=== PATIENT | female | born 1965 | race Two or more races ===

== ENCOUNTER 2023-06-27 10:08 | Outpatient (CLI) | payer MEDICARE, OTHER ==
[~2023-06-27] VITALS: Ht 165.1 cm; Wt 53.8 kg
[~2023-06-27 10:08] MED LIST: ALBUTEROL SULFATE 2.5MG/0.5ML INH NEB SOLN INH PRN; EPINEPHrine INJ 1 MG/ML 1ML AMP IM PRN; diphenhydrAMINE 50MG/ML VIAL IV PRN; methylPREDNISolone 125MG 2ML VIAL IV PRN
[2023-06-27 10:30] VITALS: BP 104/49; O2SAT 98
[2023-06-27] MEDS ORDERED: NATALIZUMAB OVER 1 HOUR IV ONE ×2 (11:10)
[2023-06-27] MEDS ORDERED: NS 1,000 ML IV SCH (11:10)
[2023-06-27] MEDS ORDERED: ESTR1CAP PO (11:49)
[2023-06-27] MEDS ORDERED: ADDE5CAP PO (11:49)
[2023-06-27] MEDS ORDERED: TIZA2CAP PO (11:49)
[2023-06-27] MEDS ORDERED: CYMB1CAP4 PO (11:49)
[2023-06-27 12:35] VITALS: BP 119/64; O2SAT 100
[2023-06-27 13:41] LABS: ALBUMIN 3.9 G/DL (3.2-5.2); BILIRUBIN,DIRECT 0.2 MG/DL (<0.4); BILIRUBIN,TOTAL 0.8 MG/DL (0.3-1.2); TOTAL PROTEIN 6.4 G/DL (5.7-8.2)
== END 2023-06-27 13:00 | disposition home or self-care (01) ==
LOC: M INFU 10:08 → EDUNIT# 07-12 09:00
PROVIDERS: ATTEND Registered Nurse
DX: G35 Multiple sclerosis (principal); Z88.8 Allergy status to other drugs, medicaments and biological substances
CPT/HCPCS: 36415; 80076; 86711; 96365; J2323

== ENCOUNTER 2023-07-25 10:50 | Outpatient (CLI) | payer MEDICARE, OTHER ==
[~2023-07-25] VITALS: Ht 162.6 cm; Wt 54.5 kg
[2023-07-25 10:49] VITALS: BP 110/56; TEMP 98.6; O2SAT 100
[~2023-07-25 10:50] MED LIST changes: +ADDE5CAP PO; +CYMB1CAP4 PO; +ESTR1CAP PO; +NATALIZUMAB OVER 1 HOUR IV ONE; +NS 1,000 ML IV SCH; +TIZA2CAP PO
[2023-07-25 12:59] VITALS: BP 97/50; TEMP 97.9; O2SAT 100
== END 2023-07-25 13:00 ==
LOC: M INFU 10:50 → EDUNIT# 08-09 09:00
PROVIDERS: ATTEND Registered Nurse
DX: G35 Multiple sclerosis (principal); Z88.8 Allergy status to other drugs, medicaments and biological substances
CPT/HCPCS: 96365; J2323

== ENCOUNTER 2023-08-22 09:55 | Outpatient (CLI) | payer MEDICARE, OTHER ==
[~2023-08-22] VITALS: Ht 165.1 cm; Wt 51.0 kg
[~2023-08-22 09:55] MED LIST changes: -NATALIZUMAB OVER 1 HOUR IV ONE
[2023-08-22] MEDS ORDERED: NATALIZUMAB OVER 1 HOUR IV ONE ×2 (10:00)
[2023-08-22 10:10] VITALS: BP 112/57; O2SAT 100
[2023-08-22 11:53] VITALS: BP 111/57; O2SAT 100
== END 2023-08-22 10:54 ==
LOC: M INFU 09:55 → EDUNIT# 09-06 09:00
PROVIDERS: ATTEND Registered Nurse
DX: G35 Multiple sclerosis (principal); Z88.8 Allergy status to other drugs, medicaments and biological substances
CPT/HCPCS: 96365; J2323

== ENCOUNTER 2023-09-19 10:05 | Outpatient (CLI) | payer MEDICARE, OTHER ==
[~2023-09-19] VITALS: Ht 165.1 cm; Wt 51.0 kg
[~2023-09-19 10:05] MED LIST changes: +ALBUTEROL SULFATE 2.5MG/0.5ML INH NEB SOLN INH PRN; +EPINEPHrine INJ 1 MG/ML 1ML AMP IM PRN; +NATALIZUMAB OVER 1 HOUR IV ONE; +NS 1,000 ML IV SCH; +diphenhydrAMINE 50MG/ML VIAL IV PRN; +methylPREDNISolone 125MG 2ML VIAL IV PRN
[2023-09-19 10:31] VITALS: BP 104/52; O2SAT 100
[2023-09-19 11:40] VITALS: BP 114/58; O2SAT 99
== END 2023-09-19 11:50 | disposition home or self-care (01) ==
LOC: M INFU 10:05 → EDUNIT# 10-04 09:00
PROVIDERS: ATTEND Registered Nurse
DX: G35 Multiple sclerosis (principal); Z88.8 Allergy status to other drugs, medicaments and biological substances
CPT/HCPCS: 96365; J2323

== ENCOUNTER → 2023-09-19 | Outpatient (CLI) | payer MEDICARE, OTHER ==
[~2023-09-19] MED LIST changes: -ALBUTEROL SULFATE 2.5MG/0.5ML INH NEB SOLN INH PRN; -EPINEPHrine INJ 1 MG/ML 1ML AMP IM PRN; -NS 1,000 ML IV SCH; -diphenhydrAMINE 50MG/ML VIAL IV PRN; -methylPREDNISolone 125MG 2ML VIAL IV PRN
[2023-09-19 13:52] LABS: ALBUMIN 4.2 G/DL (3.2-5.2); BILIRUBIN,DIRECT 0.2 MG/DL (<0.4); BILIRUBIN,TOTAL 0.7 MG/DL (0.3-1.2); TOTAL PROTEIN 6.8 G/DL (5.7-8.2)
== END ==
LOC: M LAB 12:10
PROVIDERS: ATTEND Psychiatry & Neurology Neurology
DX: G35 Multiple sclerosis (principal)

== ENCOUNTER 2023-10-23 14:10 | Outpatient (CLI) | payer MEDICARE, OTHER ==
[~2023-10-23] VITALS: Ht 165.1 cm; Wt 54.6 kg
[2023-10-23 14:10] VITALS: BP 129/59; O2SAT 98
[2023-10-23 15:58] VITALS: BP 113/71; O2SAT 100
== END 2023-10-23 16:00 | disposition home or self-care (01) ==
LOC: M INFU 14:10 → EDUNIT# 11-01 09:00
PROVIDERS: ATTEND Registered Nurse
DX: G35 Multiple sclerosis (principal); Z88.8 Allergy status to other drugs, medicaments and biological substances
CPT/HCPCS: 96365; J2323

== ENCOUNTER 2023-11-20 14:10 | Outpatient (CLI) | payer MEDICARE, OTHER ==
[~2023-11-20] VITALS: Ht 165.1 cm; Wt 54.5 kg
[2023-11-20 14:05] VITALS: BP 144/75; O2SAT 98
[2023-11-20 16:10] VITALS: BP 149/68; O2SAT 98
== END 2023-11-20 16:10 ==
LOC: M INFU 14:10
PROVIDERS: ATTEND Registered Nurse
DX: G35 Multiple sclerosis (principal); Z88.8 Allergy status to other drugs, medicaments and biological substances
CPT/HCPCS: 96365; J2323

== ENCOUNTER 2023-12-20 13:45 | Outpatient (CLI) | payer MEDICARE, OTHER ==
[~2023-12-20] VITALS: Ht 165.1 cm; Wt 55.0 kg
[~2023-12-20 13:45] MED LIST changes: -NATALIZUMAB OVER 1 HOUR IV ONE; -NS 1,000 ML IV SCH
[2023-12-20 13:57] VITALS: BP 124/59; O2SAT 100
[2023-12-20] MEDS ORDERED: NS 1,000 ML IV SCH (14:00)
[2023-12-20] MEDS: NATALIZUMAB OVER 1 HOUR IV ONE (14:09)
[2023-12-20 15:25] VITALS: BP 92/42; O2SAT 98
== END 2023-12-20 15:25 | disposition home or self-care (01) ==
LOC: M INFU 13:45
PROVIDERS: ATTEND Registered Nurse
DX: G35 Multiple sclerosis (principal); Z88.8 Allergy status to other drugs, medicaments and biological substances
CPT/HCPCS: 96365; J2323

== ENCOUNTER 2024-01-17 14:00 | Outpatient (CLI) | payer MEDICARE, OTHER ==
[~2024-01-17] VITALS: Ht 165.1 cm; Wt 53.6 kg
[~2024-01-17 14:00] MED LIST changes: +NS 1,000 ML IV SCH
[2024-01-17 14:15] VITALS: BP 107/60; O2SAT 97
[2024-01-17] MEDS: NATALIZUMAB OVER 1 HOUR IV ONE (14:55)
[2024-01-17 16:08] VITALS: BP 109/56; O2SAT 100
== END 2024-01-17 16:10 ==
LOC: M INFU 14:00
PROVIDERS: ATTEND Registered Nurse
DX: G35 Multiple sclerosis (principal); Z88.8 Allergy status to other drugs, medicaments and biological substances
CPT/HCPCS: 96365; J2323

== ENCOUNTER 2024-02-14 14:04 | Outpatient (CLI) | payer MEDICARE, OTHER ==
[~2024-02-14] VITALS: Ht 167.6 cm; Wt 54.0 kg
[2024-02-14 14:10] VITALS: BP 102/62; O2SAT 95
[2024-02-14] MEDS: NATALIZUMAB OVER 1 HOUR IV ONE (14:52)
[2024-02-14 16:02] VITALS: BP 107/54; O2SAT 100
== END 2024-02-14 16:05 | disposition home or self-care (01) ==
LOC: M INFU 14:04
PROVIDERS: ATTEND Registered Nurse
DX: G35 Multiple sclerosis (principal); Z88.8 Allergy status to other drugs, medicaments and biological substances
CPT/HCPCS: 96365; J2323

== ENCOUNTER 2024-03-13 14:00 | Outpatient (CLI) | payer MEDICARE, OTHER ==
[~2024-03-13] VITALS: Ht 165.1 cm; Wt 54.5 kg
[2024-03-13 14:00] VITALS: BP 113/65; O2SAT 100
[~2024-03-13 14:00] MED LIST changes: +ALBUTEROL SULFATE 2.5MG/0.5ML INH NEB SOLN INH PRN; +EPINEPHrine INJ 1 MG/ML 1ML AMP IM PRN; +NS 1,000 ML IV SCH; +diphenhydrAMINE 50MG/ML VIAL IV PRN; +methylPREDNISolone 125MG 2ML VIAL IV PRN
[2024-03-13] MEDS: NATALIZUMAB OVER 1 HOUR IV ONE (15:00)
[2024-03-13 16:15] VITALS: BP 127/55; O2SAT 98
== END 2024-03-13 16:15 | disposition home or self-care (01) ==
LOC: M INFU 14:00
PROVIDERS: ATTEND Registered Nurse
DX: G35 Multiple sclerosis (principal); Z88.8 Allergy status to other drugs, medicaments and biological substances
CPT/HCPCS: 36592; 80076; 86711; 96365; J2323

== ENCOUNTER → 2024-03-13 | Outpatient (CLI) | payer MEDICARE, OTHER ==
[~2024-03-13] MED LIST changes: -ALBUTEROL SULFATE 2.5MG/0.5ML INH NEB SOLN INH PRN; -EPINEPHrine INJ 1 MG/ML 1ML AMP IM PRN; -NS 1,000 ML IV SCH; -diphenhydrAMINE 50MG/ML VIAL IV PRN; -methylPREDNISolone 125MG 2ML VIAL IV PRN
[2024-03-13 15:03] LABS: ALBUMIN 3.8 G/DL (3.2-5.2); BILIRUBIN,DIRECT 0.1 MG/DL (<0.4); BILIRUBIN,TOTAL 0.4 MG/DL (0.3-1.2); TOTAL PROTEIN 6.3 G/DL (5.7-8.2)
== END ==
LOC: M LAB 13:56
PROVIDERS: ATTEND Psychiatry & Neurology Neurology
DX: G35 Multiple sclerosis (principal)

== ENCOUNTER → 2024-05-16 | Outpatient (CLI) | payer MEDICARE, OTHER ==
[~2024-05-16] MED LIST changes: +NATALIZUMAB OVER 1 HOUR IV ONE
== END ==
LOC: M INFU 11:58
PROVIDERS: ATTEND Registered Nurse
DX: G35 Multiple sclerosis (principal); Z88.8 Allergy status to other drugs, medicaments and biological substances; Z53.9 Procedure and treatment not carried out, unspecified reason

== ENCOUNTER 2024-05-20 13:40 | Outpatient (CLI) | payer MEDICARE, OTHER ==
[~2024-05-20 13:40] MED LIST changes: -ALBUTEROL SULFATE 2.5MG/0.5ML INH NEB SOLN INH PRN; -EPINEPHrine INJ 1 MG/ML 1ML AMP IM PRN; -NATALIZUMAB OVER 1 HOUR IV ONE; -NS 1,000 ML IV SCH; -diphenhydrAMINE 50MG/ML VIAL IV PRN; -methylPREDNISolone 125MG 2ML VIAL IV PRN
[2024-05-20 13:54] VITALS: BP 136/63; O2SAT 99
[2024-05-20] MEDS: NATALIZUMAB OVER 1 HOUR IV ONE (14:06)
[2024-05-20 15:23] VITALS: BP 113/76; O2SAT 100
== END 2024-05-20 15:25 | disposition home or self-care (01) ==
LOC: M INFU 13:40
PROVIDERS: ATTEND Registered Nurse
DX: G35 Multiple sclerosis (principal); Z88.8 Allergy status to other drugs, medicaments and biological substances

== ENCOUNTER 2024-05-20 15:43 | Emergency (ER) | payer MEDICARE, OTHER ==
[~2024-05-20] VITALS: Ht 167.6 cm; Wt 54.5 kg
[2024-05-20 17:33] LABS: AMPHETAMINES LEVEL URINE NEGATIVE (NEGATIVE); BARBITURATES URINE NEGATIVE (NEGATIVE); BENZODIAZEPINES URINE NEGATIVE (NEGATIVE); CANNABINOIDS URINE NEGATIVE (NEGATIVE); COCAINE METABOLITE URINE NEGATIVE (NEGATIVE); METHADONE URINE NEGATIVE (NEGATIVE); OPIATES URINE NEGATIVE (NEGATIVE); PHENCYCLIDINE URINE NEGATIVE (NEGATIVE)
[2024-05-20 18:48] VITALS: BP 141/64; TEMP 98.3; O2SAT 98
== END 2024-05-20 18:51 | disposition home or self-care (01) ==
LOC: M ED 15:43
DX: F32.89 Other specified depressive episodes (principal); G35 Multiple sclerosis; Z88.8 Allergy status to other drugs, medicaments and biological substances; Z79.890 Hormone replacement therapy; Z79.899 Other long term (current) drug therapy
CPT/HCPCS: 80307; 96365; 99284; J2323

== ENCOUNTER 2024-06-18 13:00 | Outpatient (CLI) | payer MEDICARE, OTHER ==
[~2024-06-18] VITALS: Ht 167.6 cm; Wt 55.0 kg
[2024-06-18 13:10] VITALS: BP 109/51; O2SAT 98
[2024-06-18] MEDS: NATALIZUMAB OVER 1 HOUR IV ONE (13:45)
[2024-06-18 14:55] VITALS: BP_SYST 106; O2SAT 100
== END 2024-06-18 15:00 ==
LOC: M INFU 13:00
PROVIDERS: ATTEND Registered Nurse
DX: G35 Multiple sclerosis (principal); Z88.8 Allergy status to other drugs, medicaments and biological substances
CPT/HCPCS: 96365; J2323

== ENCOUNTER 2024-07-15 14:00 | Outpatient (CLI) | payer MEDICARE, OTHER ==
[~2024-07-15] VITALS: Ht 167.6 cm; Wt 53.6 kg
[2024-07-15 14:00] VITALS: BP 129/59; O2SAT 100
[2024-07-15] MEDS: NATALIZUMAB OVER 1 HOUR IV ONE (14:46)
== END 2024-07-15 16:00 ==
LOC: M INFU 14:00
PROVIDERS: ATTEND Registered Nurse
DX: G35 Multiple sclerosis (principal); Z88.8 Allergy status to other drugs, medicaments and biological substances
CPT/HCPCS: 96365; J2323

== ENCOUNTER 2024-08-12 14:07 | Outpatient (CLI) | payer MEDICARE, OTHER ==
[~2024-08-12] VITALS: Ht 165.1 cm; Wt 53.6 kg
[2024-08-12 14:30] VITALS: BP 114/58; O2SAT 100
[2024-08-12 15:15] LABS: BILIRUBIN,DIRECT 0.1 MG/DL (<0.4); BILIRUBIN,TOTAL 0.5 MG/DL (0.3-1.2); TOTAL PROTEIN 6.9 G/DL (5.7-8.2)
[2024-08-12] MEDS: NATALIZUMAB OVER 1 HOUR IV ONE (15:15)
[2024-08-12 16:21] VITALS: BP 99/54; O2SAT 99
== END 2024-08-12 16:20 ==
LOC: M INFU 14:07
PROVIDERS: ATTEND Registered Nurse
DX: G35 Multiple sclerosis (principal); Z91.048 Other nonmedicinal substance allergy status
CPT/HCPCS: 36415; 80076; 86711; 96365; J2323

== ENCOUNTER → 2024-08-12 | Outpatient (CLI) | payer MEDICARE, OTHER | LOC: M LAB 14:04 | PROVIDERS: ATTEND Psychiatry & Neurology Neurology | DX: G35 Multiple sclerosis (principal) ==

== ENCOUNTER 2024-09-09 14:03 | Outpatient (CLI) | payer MEDICARE, OTHER ==
[~2024-09-09] VITALS: Ht 167.6 cm; Wt 55.0 kg
[2024-09-09 14:10] VITALS: BP 111/61; O2SAT 97
[2024-09-09] MEDS: NATALIZUMAB OVER 1 HOUR IV ONE (14:43)
[2024-09-09 15:45] VITALS: BP 105/54; O2SAT 100
== END 2024-09-09 15:50 ==
LOC: M INFU 14:03
PROVIDERS: ATTEND Registered Nurse
DX: G35 Multiple sclerosis (principal); Z88.8 Allergy status to other drugs, medicaments and biological substances
CPT/HCPCS: 96365; J2323

== ENCOUNTER 2024-10-23 11:14 | Outpatient (CLI) | payer MEDICARE, OTHER ==
[~2024-10-23] VITALS: Ht 165.1 cm; Wt 53.6 kg
[~2024-10-23 11:14] MED LIST changes: +NATALIZUMAB OVER 1 HOUR IV ONE
[2024-10-23 11:20] VITALS: BP 113/54; O2SAT 100
[2024-10-23] MEDS: NATALIZUMAB OVER 1 HOUR IV ONE (12:07)
[2024-10-23 13:15] VITALS: BP 91/67; O2SAT 97
== END 2024-10-23 13:15 ==
LOC: M INFU 11:14
PROVIDERS: ATTEND Registered Nurse
DX: G35 Multiple sclerosis (principal)
CPT/HCPCS: 96365; J2323

== ENCOUNTER → 2024-11-04 | Outpatient (CLI) | payer MEDICARE, OTHER ==
[~2024-11-04] MED LIST changes: -NATALIZUMAB OVER 1 HOUR IV ONE; +PROHANCE 279.3MG/ML 5ML VIAL As Ordered ONE
== END ==
LOC: M RAD 16:25
PROVIDERS: ATTEND Psychiatry & Neurology Neurology
DX: G35 Multiple sclerosis (principal)
CPT/HCPCS: 70553; A9576

== ENCOUNTER 2025-06-30 15:14 | Outpatient (CLI) | payer MEDICARE, OTHER ==
[~2025-06-30] VITALS: Ht 167.6 cm; Wt 50.9 kg
[~2025-06-30 15:14] MED LIST changes: -PROHANCE 279.3MG/ML 5ML VIAL As Ordered ONE
[2025-06-30] MEDS: methylPREDNISolone 1,000 MG, VIAL MATE ADAPTER 1 EACH in NS 100 ML IV ONE (15:38)
[2025-06-30 16:45] VITALS: BP 111/56; O2SAT 99
== END 2025-06-30 16:45 ==
LOC: M INFU 15:14
PROVIDERS: ATTEND Registered Nurse
DX: G35 Multiple sclerosis (principal); Z88.8 Allergy status to other drugs, medicaments and biological substances
CPT/HCPCS: 96365; J2919

== ENCOUNTER 2025-07-01 16:09 | Outpatient (CLI) | payer MEDICARE, OTHER ==
[~2025-07-01] VITALS: Ht 170.2 cm; Wt 50.9 kg
[2025-07-01 16:22] VITALS: BP 113/62; O2SAT 100
[2025-07-01] MEDS: methylPREDNISolone 1,000 MG, VIAL MATE ADAPTER 1 EACH in NS 100 ML IV ONE (16:29)
[2025-07-01 17:28] VITALS: BP 128/60; O2SAT 100
== END 2025-07-01 17:30 ==
LOC: M INFU 16:09
PROVIDERS: ATTEND Registered Nurse
DX: G35 Multiple sclerosis (principal); Z88.8 Allergy status to other drugs, medicaments and biological substances
CPT/HCPCS: 96365; J2919

== ENCOUNTER 2025-07-02 16:12 | Outpatient (CLI) | payer MEDICARE, OTHER ==
[~2025-07-02] VITALS: Ht 162.6 cm; Wt 51.8 kg
[2025-07-02 16:35] VITALS: BP 128/61; O2SAT 100
[2025-07-02] MEDS: methylPREDNISolone 1,000 MG, VIAL MATE ADAPTER 1 EACH in NS 100 ML IV ONE (16:54)
[2025-07-02 17:58] VITALS: BP 125/72; O2SAT 97
== END 2025-07-02 17:58 ==
LOC: M INFU 16:12
PROVIDERS: ATTEND Registered Nurse
DX: G35 Multiple sclerosis (principal); Z88.8 Allergy status to other drugs, medicaments and biological substances
CPT/HCPCS: 96365; J2919